=== PATIENT | female | born 1975 | race Caucasian/White ===

== ENCOUNTER 2017-05-17 10:39 | Emergency (ER) | payer MEDICAID ==
[2017-05-17] MEDS: IBUPROFEN 800 MG TAB PO (12:48)
== END 2017-05-17 13:30 | disposition home or self-care (01) ==
LOC: E/R 10:39 → FTE 13:30
DX: R07.89 Other chest pain (principal); J06.9 Acute upper respiratory infection, unspecified
CPT/HCPCS: 71045; 93005; 99284-25

== ENCOUNTER 2017-10-14 17:00 | Emergency (ER) | payer MEDICAID ==
[2017-10-14] MEDS: KETOROLAC 60 MG INJ IM (18:22)
== END 2017-10-14 19:57 | disposition home or self-care (01) ==
LOC: FTE 17:00
DX: M25.561 Pain in right knee (principal)
CPT/HCPCS: 73562; 81025; 96372; 99284-25